=== PATIENT | male | born 1965 | race Caucasian/White ===

== ENCOUNTER 2017-04-13 08:37 | Emergency (ER) | payer MEDICAID ==
[~2017-04-13] VITALS: Ht 182.9 cm; Wt 95.5 kg
[2017-04-13 08:43] VITALS: Ht 182.9 cm; Wt 95.5 kg
[2017-04-13] MEDS ORDERED: PRED50TA PO (09:00)
[2017-04-13] MEDS ORDERED: PROM5SYR2 PO (09:00)
--- NOTE | 2017-04-13 09:03 | ERD ---
ER Documentation Chief Complaint Date/Time DATE: 04/13/17 TIME: 09:01 Chief Complaint fever and cough x 5 days HPI 52-year-old male this is a 52-year-old male who presents complaining of cough and congestion with subjective fever for the past 5 days. Cough is dry worse at night. He denies any nausea vomiting diarrhea. He has taken over-the- counter medications without any relief. ROS All systems reviewed and are negative except as per history of present illness. Medications Home Meds Active Scripts Promethazine HCl/Codeine (Prometh-Codein 6.25-10 mg/5 ml) 5 Ml Syrup, 5 ML PO QHS, #4 OZ Prov:CEDRICK LOZANO PA-C 04/13/17 Prednisone* (Prednisone*) 50 Mg Tablet, 50 MG PO DAILY, #4 TAB Prov:CEDRICK LOZANO PA-C 04/13/17 PMhx/Soc Medical and Surgical Hx: pt denies Medical Hx, pt denies Surgical Hx Hx Alcohol Use: No Hx Substance Use: No Hx Tobacco Use: No Smoking Status: Never smoker FmHx Family History: No diabetes Physical Exam Vitals Vital Signs Date Time Temp Pulse Resp B/P Pulse Ox O2 Delivery O2 Flow Rate FiO2 04/13/17 08:43 98.9 83 18 128/78 97 Physical Exam Const: [] General: well developed, well nourished, alert, nontoxic, no distress Head: normocephalic, atraumatic Eyes: PERRL, normal conjunctiva Neck: Supple, nontender, no lymphadenopathy, no midline tenderness Oropharynx: no tonsilar erythema or edema, uvula midline, no exudates, no kissing tonsils, no drooling Respiratory: Clear to auscaultation bilaterally, speaks in full sentences, no use of accesory muscles or labored breathing, no rales, ronchi, or wheezing Cardiovascular: RRR, No murmurs GI: soft, non tender, non distended, negative murphys sign, negative mcburneys point tenderness, no cva tenderness bilaterally, no rebound or guarding Back: no midline tenderness, no step offs or bony abnormalities, sensation to light touch in tact Procedures/MDM 52-year-old male presents with cough and congestion for the past 5 days. His vitals are normal he is afebrile and well-appearing. Lungs are clear and I doubt pneumonia. Most likely viral. Urine patient for cough syrup as well as short course of prednisone. Recommended this patient follow up with her primary care doctor within 48 hours or return to the emergency room for any worsening of symptoms. However this time I do believe there is suitable for outpatient management. I answered all their questions and they agreed with the plan and were discharged home. Departure Diagnosis: Primary Impression: Bronchitis Condition: Stable Patient Instructions: Bronchitis, No Antibiotic (Adult) Additional Instructions: Llame al doctor ANDRÉS y xavier lamont LEESA PARA DENTRO DE 1-2 SHARPE.Dgale a la secretaria que nosotros le instruimos hacer esta leesa.Avise o llame si bliss condicin se empeora antes de la leesa. Regresa aqui si peor o no mejor. CEDRICK LOZANO PA-C April 13, 2017 09:03
== END 2017-04-13 09:07 | disposition home or self-care (01) ==
LOC: FTE 08:37
DX: J40 Bronchitis, not specified as acute or chronic (principal)
CPT/HCPCS: 99284